=== PATIENT | female | born 1995 | race Caucasian/White ===

== ENCOUNTER 2018-03-04 16:44 | Outpatient (CLI) | payer OTHER | END 2018-03-04 19:56 | disposition home or self-care (01) | LOC: OBS/DEL 16:44 | DX: O60.03 Preterm labor without delivery, third trimester (principal); Z34.03 Encounter for supervision of normal first pregnancy, third trimester ==

== ENCOUNTER 2018-03-04 19:53 | Inpatient (IN) | payer OTHER ==
[~2018-03-04] VITALS: Ht 167.6 cm; Wt 101.2 kg
[2018-03-11] MEDS ORDERED: ZOVIRAX400 M1 PO (14:35)
[2018-04-03] MEDS ORDERED: PRENATAL 19 TA1 EAC1 PO (17:01)
[2018-04-03] MEDS ORDERED: ACYCLOVIR400 MG PO (17:04)
== END 2018-04-06 13:06 | disposition home or self-care (01) | DRG 774 ==
LOC: LDR → OB/GYN 04-03 15:01 → LDR 04-04 19:53 → OB/GYN 04-06 13:06
PROC: 10E0XZZ Delivery of Products of Conception, External Approach (ICD-10-PCS; principal; 2018-04-04)
PROC: 0KQM0ZZ Repair Perineum Muscle, Open Approach (ICD-10-PCS; 2018-04-04)
PROC: 0W8NXZZ Division of Female Perineum, External Approach (ICD-10-PCS; 2018-04-04)
PROC: 3E033VJ Introduction of Other Hormone into Peripheral Vein, Percutaneous Approach (ICD-10-PCS; 2018-04-04)
PROC: 4A033R1 Measurement of Arterial Saturation, Peripheral, Percutaneous Approach (ICD-10-PCS; 2018-04-04)
PROC: 4A1HXCZ Monitoring of Products of Conception, Cardiac Rate, External Approach (ICD-10-PCS; 2018-04-04)
DX: O70.1 Second degree perineal laceration during delivery (principal); O98.32 Other infections with a predominantly sexual mode of transmission complicating childbirth; Z37.0 Single live birth; Z3A.39 39 weeks gestation of pregnancy

== ENCOUNTER 2018-03-11 13:24 | Outpatient (CLI) | payer OTHER ==
[2018-03-11] MEDS ORDERED: ZOVIRAX400 M1 PO (14:35)
== END 2018-03-11 17:21 | disposition home or self-care (01) ==
LOC: OBS/DEL 13:24
DX: O26.893 Other specified pregnancy related conditions, third trimester (principal); R10.2 Pelvic and perineal pain; Z34.03 Encounter for supervision of normal first pregnancy, third trimester

== ENCOUNTER 2018-03-22 14:00 | Inpatient (IN) | payer OTHER ==
[~2018-03-22] VITALS: Ht 167.6 cm; Wt 100.2 kg
[~2018-03-22 14:00] MED LIST: ZOVIRAX400 M1 PO
== END 2018-03-23 16:12 | disposition home or self-care (01) | DRG 780 ==
LOC: LDR 14:00
PROC: BY4FZZZ Ultrasonography of Third Trimester, Single Fetus (ICD-10-PCS; principal; 2018-03-22)
PROC: 4A1HXCZ Monitoring of Products of Conception, Cardiac Rate, External Approach (ICD-10-PCS; 2018-03-22)
DX: O47.1 False labor at or after 37 completed weeks of gestation (principal); O36.8130 Decreased fetal movements, third trimester, not applicable or unspecified

== ENCOUNTER 2018-04-02 17:35 | Outpatient (CLI) | payer OTHER ==
[2018-04-03] MEDS ORDERED: PRENATAL 19 TA1 EAC1 PO (17:01)
[2018-04-03] MEDS ORDERED: ACYCLOVIR400 MG PO (17:04)
== END 2018-04-03 14:53 | disposition still patient (30) ==
LOC: OBS/DEL 17:35
DX: O47.1 False labor at or after 37 completed weeks of gestation (principal); O42.92 Full-term premature rupture of membranes, unspecified as to length of time between rupture and onset of labor